=== PATIENT | female | born 1935 | race Caucasian/White ===

== ENCOUNTER 2018-07-19 09:09 | Emergency (ER) | payer MEDICARE, SELFPAY ==
[2018-07-19 09:15] VITALS: BP 158/55; PULSE 84; RESP 18; TEMP 36.6; O2SAT 95
--- NOTE | 2018-07-19 09:59 | ED.GENADUL_ITS ---
Discharge Plan Disposition Patient Disposition: HOME Condition: Stable Discharge Details Chief Complaint: RespSymp Clinical Impression: Sinusitis, Cough Primary Care Provider: Margi Jackson ED Provider: Julia Luu Home Meds and New Rx's Prescriptions: New levofloxacin [Levaquin] 750 mg tablet 750 mg PO DAILY 7 Days Qty: 7 RF: 0 Continued amlodipine 5 MG tablet 5 mg PO DAILY RF: 0 aspirin [Aspir-81] 81 MG tablet,delayed release (DR/EC) 81 mg PO DAILY RF: 0 losartan 25 MG tablet 25 mg PO DAILY RF: 0 hydrochlorothiazide 25 MG tablet 25 mg PO DAILY RF: 0 Humalog U-100 Insulin 100 UNIT/ML cartridge 5 units SQ .AC PER S/S RF: 0 Levemir U-100 Insulin 100 UNITS/ML solution 14 units SQ HS RF: 0 Discharge Instructions Instructions: Sinusitis (ED), Pneumonia (ED), Acute Cough (ED) Additional Instructions: You may have a sinus infection and/or a pneumonia. The antibiotics you were given will treat for both of these conditions. Try [id number] Flonase, Nasonex or Nasacort to help with sinus congestion. You can also try dmyv-igt-tzryill sinus rinse kit or Flaquita pot to help with sinus congestion. Continue to use your vicks that you have at home to help with sinus congestion and cough. Check your sugars regularly and be sure to keep your sugar in good control. Drink plenty of fluids and get plenty of rest. Follow-up with your primary care doctor in 3 days for reevaluation. Return immediately to the emergency department any worsening or new concerning symptoms. Discharge Data Discharge Physician: Julia Luu Medical Decision Making 83-year-old female with history of diabetes, hypertension, high cholesterol who presents with nasal congestion, sinus congestion and pain, sore throat, and cough with chest congestion for the past 5 days. She states the cough is bothering her the most. She denies any fever, chest pain, shortness of breath. States her sore throat is improved. Normal heart rate, respiratory rate, afebrile. O2 sat 95% on room air. Upon my evaluation in room, O2 sat ranged from 92-95% on room air. She is speaking in full sentences, no respiratory distress, no wheezing, rales, rhonchi, accessory muscle use. Lungs completely clear to auscultation. Normal ENT exam. She is noted to have an occasional cough on exam. Differential diagnosis includes URI, sinusitis, pneumonia. No exam findings consistent with strep pharyngitis. I offered patient a chest x-ray but she declines as she complains of no shortness of breath. I discussed that her O2 sat is mildy low at 92-95 % which may be indicative of a pneumonia but she has no other exam findings consistent with this. Discussed with patient that antibiotics for a sinus infection can also cover for a possible pneumonia. She states her sugars have been in the 300s over the past few days since she be came sick, but they are usually in the 130s. She is instructed to monitor her glucose and adjust her insulin accordingly. She was also instructed to continue to use vicks ointment, sinus rinse kit, and over the counter nasal steroids prn. She was given 1 dose of Levaquin here as well as a prescription for home. She was offered an inhaler but declines. She is instructed to follow-up with the primary care doctor for reevaluation in the next 2-3 days and to return here immediately if worse. HPI General Mode of arrival: ambulatory . Date/Time Provider Initiated Documentation: 07/19/18 09:23 . Limitations to Documentation: no limitations . Information obtained by: patient . HPI Narrative: Patient is an 83-year-old female with history of hypertension, high cholesterol, diabetes who presents with sore throat, nasal congestion, sinus pain and congestion and cough for the past 5 days. Patient states her symptoms started as a sore throat 5 days ago but this then improved. She states 2 days ago she started with sinus congestion, cough and chest congestion. She states her symptoms seem similar to when she previously was treated for sinusitis 2 years ago. She states her sore throat is much improved. She denies any sputum production with her cough. She denies known fever, chest pain or shortness of breath. She denies any recent antibiotics. She has been taking [id number] cough and cold medication. She states she has been eating and drinking. Related Data Home Medications Medication Instructions Recorded Confirmed Humalog U-100 Insulin 5 units SQ .AC PER S/S 08/03/13 07/19/18 amlodipine 5 mg PO DAILY 08/03/13 07/19/18 aspirin [Aspir-81] 81 mg PO DAILY 08/03/13 07/19/18 hydrochlorothiazide 25 mg PO DAILY 08/03/13 07/19/18 losartan 25 mg PO DAILY 08/03/13 07/19/18 Levemir U-100 Insulin 14 units SQ HS 11/09/16 07/19/18 levofloxacin [Levaquin] 750 mg PO DAILY 7 Days #7 tab 07/19/18 Previous Rx's Medication Instructions Recorded levofloxacin [Levaquin] 750 mg PO DAILY 7 Days #7 tab 07/19/18 Allergies Allergy/AdvReac Type Severity Reaction Status Date / Time No Known Allergies Allergy Unverified 07/19/18 09:22 General Stated Complaint: RespSymp DOMONIQUE: 3 Review of Systems Review of Systems All systems reviewed & are unremarkable except as noted in HPI and below Constitutional Reports as per HPI, Denies chills and Denies fever(s) Eyes Denies blurry vision ENT Denies dizziness, Reports nasal congestion, Reports sinus pain, Reports sinus pressure, Reports sore throat and Denies throat swelling Cardiovascular Denies chest pain and Denies dyspnea Respiratory Reports cough and Denies dyspnea Gastrointestinal Denies abdominal pain, Denies diarrhea and Denies vomiting Genitourinary Denies hematuria and Denies dysuria Musculoskeletal Denies back pain and Denies numbness Integumentary/Breasts Denies lesions and Denies rash Neurologic Denies dizziness, Denies focal weakness and Denies numbness Allergic/Immunologic Denies throat swelling [facility] Medical History Hx of hyperlipidemia (Acute) Cataract (Chronic) Diabetes mellitus (Chronic) Hypertension (Chronic) Obesity (Chronic) Surgical History History of cataract surgery (Chronic) Social History Smoking/Tobacco Use Status: Never Alcohol Intake: never Drug use: Never Substance use type: does not use Do you feel safe at home: Yes Do you feel safe in your relationship?: Yes Exam Const General: cooperative and healthy appearing Orientation: alert and awake HENNV Head: normal to inspection Ears: hearing grossly normal bilaterally, external ears normal and TM's normal bilaterally General nose exam: external nose normal Face and sinus: normal facial exam and sinuses nontender Mouth: oral mucosae normal Teeth and gingiva: dentition normal Throat: posterior oropharynx normal Eyes General: appearance normal, both eyes and all related structures Eyelids: eyelids normal EOM: EOM intact bilaterally Neck Neck: normal visual inspection Lymphatic: no lymphadenopathy noted Chest Chest: normal inspection of the chest Resp Effort & Inspection: normal respiratory effort and able to speak in complete sentences Auscultation: clear to auscultation bilaterally Cardio Rate: regular rate Rhythm: regular rhythm GI Inspection: normal to inspection Palpation: soft, not firm, no guarding, no hepatosplenomegaly, no masses and nontender Auscultation: normal bowel sounds Skin General skin exam: no rashes or lesions noted Neuro General: alert, awake, oriented x3, moves all extremities, no meningeal signs and no focal motor deficits Cognition: normal cognition Speech: speech normal Gait: normal gait Motor: muscle tone normal throughout Sensory Exam: no sensory deficits noted Extrem General: normal to inspection, full ROM, normal capillary refill and no edema Psych Appearance: grossly normal Mental Status: mental status grossly normal Speech and Movement: speech and movement normal Affect: normal affect Thought Process: normal Course Vital Signs Temperature 97.9 F 07/19/18 09:15 Pulse 84 07/19/18 09:15 Respiratory Rate 18 07/19/18 09:15 Blood Pressure 158/55 H 07/19/18 09:15 Pulse Oximetry 95 07/19/18 09:15 Temperature 97.9 F 07/19/18 09:15 Temperature Source Temporal Artery Scan 07/19/18 09:15 Pulse 84 07/19/18 09:15 Respiratory Rate 18 07/19/18 09:15 Respiratory Effort Non-Labored 07/19/18 09:30 Respiratory Depth Normal 07/19/18 09:30 Blood Pressure 158/55 H 07/19/18 09:15 Blood Pressure Position Sitting 07/19/18 09:15 Pulse Oximetry 95 07/19/18 09:15 Oxygen Delivery Method Room Air 07/19/18 09:15 Oxygen Flow Rate 0 07/19/18 09:15 Pain Level 5 07/19/18 09:15
[2018-07-19] MEDS: LEVOFLOXACIN 500 MG, LEVOFLOXACIN 250 MG 750 MG PO (10:03)
== END 2018-07-19 10:25 | disposition home or self-care (01) ==
PROVIDERS: Emergency Provider Physician Assistant; PCP Family Medicine
DX: J01.90 Acute sinusitis, unspecified (principal); R05 Cough
CPT/HCPCS: 99283

== ENCOUNTER 2019-03-07 13:27 | Outpatient (REF) | payer MEDICARE, SELFPAY ==
[2019-03-07 22:08] LABS: Anion Gap 11.1 mmol/L (3-11); BUN 20 mg/dL (7-18); CO2 28.9 mmol/L (21.0-32.0); CREATININE 0.84 mg/dL (0.55-1.02); Calcium 9.5 mg/dL (8.5-10.1); Chloride 99 mmol/L (98-107); Glucose 325 mg/dL (70-100); Potassium 4.1 mmol/L (3.5-5.1); Sodium 139 mmol/L (136-145)
== END 2019-03-07 13:47 ==
LOC: NCHCN 13:27
PROVIDERS: PCP Family Medicine; Visit Provider Nurse Practitioner Family
DX: I10 Essential (primary) hypertension (principal); E11.9 Type 2 diabetes mellitus without complications; E78.5 Hyperlipidemia, unspecified; M15.9 Polyosteoarthritis, unspecified; E66.9 Obesity, unspecified
CPT/HCPCS: 80048

== ENCOUNTER 2020-02-28 14:22 | Outpatient (REF) | payer MEDICARE, SELFPAY ==
[2020-02-28 22:06] LABS: Abs Immature Grans 0.01 10^3/uL (0.0-0.06); Absolute Basophil Count 0.03 10^3/uL (0.0-0.2); Absolute Eosinophil Count 0.09 10^3/uL (0.0-0.7); Absolute Lymphocyte Count 1.37 10^3/uL (1.2-3.4); Absolute Monocyte Count 0.48 10^3/uL (0.1-0.8); Absolute Neutrophil Count 3.72 10^3/uL (1.2-6.7); Basophils % 0.5; Eosinophils % 1.6; HGB 14.3 g/dL (11.2-15.7); Immature Grans % 0.2; MCH 31.4 pg (27.0-33.0); MCHC 32.5 % (32.0-36.0); MCV 96.5 fL (80-95); MPV 10.6 fL (8.0-11.0); Monocytes % 8.4; Neutrophils % 65.3; Nucleated RBC 0 %; Platelet Count 308 10^3/uL (130-400); RBC 4.56 10^6/uL (3.93-5.22); RDW 12.7 % (11.7-14.6); RDW-SD 45.2 fL
[2020-02-28 22:37] LABS: Anion Gap 5.7 mmol/L (3-11); BUN 21 mg/dL (7-18); CO2 32.3 mmol/L (21.0-32.0); CREATININE 0.71 mg/dL (0.55-1.02); Calcium 9.5 mg/dL (8.5-10.1); Chloride 101 mmol/L (98-107); Glucose 181 mg/dL (74-106); Potassium 4.4 mmol/L (3.5-5.1); Sodium 139 mmol/L (136-145); TSH (W/Ref FT4) 1.58 uIU/mL (0.36-3.74)
== END 2020-02-28 14:42 ==
LOC: NCHCN 14:22
PROVIDERS: PCP Family Medicine; Visit Provider Family Medicine
DX: E11.9 Type 2 diabetes mellitus without complications (principal); I10 Essential (primary) hypertension; M15.9 Polyosteoarthritis, unspecified; H54.7 Unspecified visual loss; E11.319 Type 2 diabetes mellitus with unspecified diabetic retinopathy without macular edema; H35.30 Unspecified macular degeneration
CPT/HCPCS: 80048; 84443; 85025

== ENCOUNTER 2021-03-18 15:06 | Outpatient (REF) | payer MEDICARE, SELFPAY ==
[2021-03-18 21:52] LABS: Anion Gap 5.9 mmol/L (3-11); BUN 20 mg/dL (7-18); CO2 33.1 mmol/L (21.0-32.0); CREATININE 0.8 mg/dL (0.55-1.02); Calcium 9.1 mg/dL (8.5-10.1); Chloride 103 mmol/L (98-107); Glucose 305 mg/dL (74-106); Potassium 5.2 mmol/L (3.5-5.1); Sodium 142 mmol/L (136-145)
== END 2021-03-18 15:07 | disposition home or self-care (01) ==
LOC: NCHCN 15:06
PROVIDERS: PCP Family Medicine; Visit Provider Nurse Practitioner Family
DX: E11.9 Type 2 diabetes mellitus without complications (principal); I10 Essential (primary) hypertension
CPT/HCPCS: 80048

== ENCOUNTER 2021-03-25 16:10 | Outpatient (REF) | payer MEDICARE, SELFPAY ==
[2021-03-25 22:44] LABS: Potassium 4.5 mmol/L (3.5-5.1)
== END 2021-03-25 16:11 | disposition home or self-care (01) ==
LOC: NCHCN 16:10
PROVIDERS: PCP Family Medicine; Visit Provider Nurse Practitioner Family
DX: E87.5 Hyperkalemia (principal)
CPT/HCPCS: 84132

== ENCOUNTER 2022-05-21 13:26 | Outpatient (REF) | payer MEDICARE, SELFPAY ==
[2022-05-21 15:15] LABS: ALT 23 U/L (14-59); AST 20 U/L (15-37); Albumin 3.5 g/dL (3.4-5.0); Alkaline Phosphatase 101 U/L (46-116); Anion Gap 7.4 mmol/L (3-11); BUN 19 mg/dL (7-18); Bilirubin, Total 0.4 mg/dL (0.2-1.0); CO2 31.6 mmol/L (21.0-32.0); CREATININE 0.8 mg/dL (0.55-1.02); Calcium 9.2 mg/dL (8.5-10.1); Chloride 100 mmol/L (98-107); Estimated GFR 72.61 (mL/min/1.73m2); Glucose 313 mg/dL (74-106); Potassium 4.4 mmol/L (3.5-5.1); Sodium 139 mmol/L (136-145); Total Protein 6.6 g/dL (6.4-8.2)
== END 2022-05-21 13:27 | disposition home or self-care (01) ==
LOC: NCHCN 13:26
PROVIDERS: PCP Family Medicine; Visit Provider Nurse Practitioner Family
DX: I10 Essential (primary) hypertension (principal); E11.9 Type 2 diabetes mellitus without complications; F41.8 Other specified anxiety disorders; E66.8 Other obesity
CPT/HCPCS: 80053